=== PATIENT | male | born 1965 | race Caucasian/White ===

== ENCOUNTER 2022-11-15 07:52 | Observation (INO) ==
[2022-11-15] MEDS ORDERED: SODIUM CHLORIDE 0.9% 1000ML 1,000 ML IV ONE (08:24)
--- NOTE | 2022-11-15 08:27 | Emergency Department Note ---
Impression & Plan Meniere disease, Dizziness ED Provider Note NAME: CANDICE PATEL AGE: 57 SEX: M : 1965 ARRIVES VIA: Walk-In INFORMANT: Patient ED PROVIDER(S): Rashawn Hernandez DO CHIEF COMPLAINT: dizzy HPI: Patient is a 57-year-old male who presents to the ER for 4 days worth of ringing and pain in his right ear. He has been dizzy over the same time period. Does not change with position or movement. He is persistently dizzy. No headache or change in vision. No chest pain or shortness of breath. No nausea, vomiting, or diarrhea. No dysuria, urgency, or frequency. No other exacerbating or remitting factors. PAST MEDICAL HISTORY:See Below PAST SURGICAL HISTORY:See Below FAMILY HISTORY:See Below SOCIAL HISTORY:See Below HOME MEDICATIONS:See Below ALLERGIES:See Below VITALS:See Below PHYSICAL EXAMINATION: GENERAL: Sitting up in bed, alert, well appearing, well nourished, no distress, non-toxic EYE EXAM: normal conjunctiva. PERRL and EOM's grossly intact. EARS: TMs clear bilaterally OROPHARYNX: mucous membranes are moist NECK: supple, no nuchal rigidity, no adenopathy, non-tender LUNGS: Clear to auscultation. Normal chest wall mechanics HEART: no murmurs, S1 normal and S2 normal ABDOMEN: abdomen soft, non-tender, normo-active bowel sounds, no masses, no rebound or guarding. UPPER EXTREMITIES: upper extremities are grossly normal. LOWER EXTREMITIES: No pitting edema. NEURO EXAM: Normal sensorium, cranial nerves II-XII intact, normal speech, no weakness of arms, no weakness of legs. No drift. Finger to nose intact. Gross sensation intact. Difficulty ambulating MEDICAL DECISION MAKING: Patient is a 57-year-old male who presents the ER for dizziness/ataxia. He does have ringing and fullness in the right ear. On exam he is completely neurologically intact and able to walk. IV was established blood work was obtained. Labs show no significant leukocytosis or anemia. BMP with creatinine 1.4. LFTs bilirubin and lipase is unremarkable. COVID was negative. Patient was given fluids and Ativan. No improvement of symptoms. Unable to MR due to claustrophobia. Discussed with Dr. Beebe for further observation and management although do favor likely Mnire's. CT angios of the head and neck were unremarkable Triage Nursing notes reviewed. Limited review of prior medical records performed Vital Signs: reviewed and remarkable for HTN Differential diagnosis: Differential diagnosis includes etiologies such as benign positional vertigo, dehydration, hypovolemia, anemia, tumor, infection, hypoglycemia, electrolyte abnormalities, cardiac sources, intracerebral event, toxicologic, neurological, as well as others were entertained. ER treatment provided: See below Diagnostics interpreted by me include EKG and cardiac monitoring as listed bel ow: -Cardiac Monitoring: An order was placed for continuous cardiac monitoring. The monitor shows a rate of 70 with sinus rhythm. -ECG: Sinus rhythm rate of 69 Normal axis No PVCs QTc 435 -Laboratory studies:Interpreted by me as stated above in MDM and shown below. Imaging studies: Xrays: As interpreted by me: Portable AP upright 1 view of the chest shows no pneumonia CTs show: CT angio of the head and neck was negative for any acute pathology per radiology Consultation(s): As described in MDM Procedures:none Critical Care: None Past Med/Surg History Medical History (Updated 11/15/22 @ 12:04 by Familia Hand MD) BPPV (benign paroxysmal positional vertigo) HLD (hyperlipidemia) Social History Smoking Status: Never smoker Feels Safe at Home: Yes Home Meds Home Medications Medication Instructions Recorded Confirmed atorvastatin 40 mg tablet 40 mg PO DAILY 11/15/22 11/15/22 diclofenac sodium 100 mg 100 mg PO DAILY 11/15/22 11/15/22 tablet,extended release 24 hr Results & Data (ED) Vital Signs Vital Signs - 24 hr 11/15/22 08:05 11/15/22 08:55 11/15/22 08:45 Temperature 36.3 C L Temperature Source Skin Pulse Rate 69 79 Pulse Rate [Right Finger] 75 Pulse Rhythm [Right Finger] Respiratory Rate 20 14 Respiratory Effort / Characteristics Non-Labored Spontaneous Non-Labored Spontaneous Respiratory Depth Normal Normal Respiratory Pattern Regular Blood Pressure 145/89 H Blood Pressure [Right Arm] 141/91 H Blood Pressure Mean 107 Blood Pressure Mean [Right Arm] 107 Blood Pressure Position [Right Arm] Semi-fowlers Pulse Oximetry 95 96 Oxygen Delivery Method Room Air Room Air Sepsis Recent Fever Within 48 Hours No Sepsis New/Unexplained Change in Mental Status N/A Sepsis Action Taken by Nursing No Action Required 11/15/22 08:24 11/15/22 10:47 Temperature 36.6 C Temperature Source Oral Pulse Rate Pulse Rate [Right Finger] 67 Pulse Rhythm [Right Finger] Regular Respiratory Rate 17 Respiratory Effort / Characteristics Non-Labored Spontaneous Respiratory Depth Normal Respiratory Pattern Regular Blood Pressure Blood Pressure [Right Arm] 136/93 Blood Pressure Mean Blood Pressure Mean [Right Arm] 107 Blood Pressure Position [Right Arm] Semi-fowlers Pulse Oximetry 94 96 Oxygen Delivery Method Room Air Room Air Sepsis Recent Fever Within 48 Hours Sepsis New/Unexplained Change in Mental Status Sepsis Action Taken by Nursing Laboratory Data 11/15/22 08:45 11/15/22 08:45 Lab Results 11/15/22 11/15/22 11/15/22 Range/Units 08:42 08:45 08:45 WBC 5.25 (4.8-10.8) K/ul RBC 5.38 (4.70-6.10) M/uL Hgb 16.1 (14.0-18.0) g/dl Hct 47.2 (42.0-52.0) % MCV 87.7 (80.0-100.0) fL MCH 29.9 (25.0-34.0) pg MCHC 34.1 (32.0-36.0) g/dL RDW Std Deviation 41.5 (36.4-46.3) fL RDW Coeff of Evin 13.0 (11.5-14.5) % Plt Count 166 (130-400) K/uL MPV 10.4 (9.4-12.4) fL Immature Gran % (Auto) 0.4 % Neut % (Auto) 55.4 % Lymph % (Auto) 32.4 % [place] % (Auto) 5.9 % Eos % (Auto) 5.1 % Baso % (Auto) 0.8 % Neut # (Auto) 2.91 (1.40-6.50) K/uL Lymph # (Auto) 1.70 (1.2-3.4) K/uL [place] # (Auto) 0.31 (0.11-0.59) K/uL Eos # (Auto) 0.27 (0-0.50) K/uL Baso # (Auto) 0.04 (0-0.2) K/uL Immature Gran # (Auto) 0.02 (0.01-0.20) K/uL Sodium 140 (136-145) mmol/L Potassium 3.9 (3.5-5.1) mmol/L Chloride 107 (98-107) mmol/L Carbon Dioxide 26 (21-32) mmol/L Anion Gap 7 (3-11) BUN 27 H (6-23) mg/dl Creatinine 1.41 H (0.6-1.4) mg/dl Est Cr Clr Drug Dosing 65.2 ml/min Est GFR ( Amer) 62.7 ml/min Est GFR (Non-Af Amer) 54.1 ml/min BUN/Creatinine Ratio 19.1 (10-20) Glucose 135 H (70-99(Fasting)) mg/dl Calcium 9.7 (8.5-10.1) mg/dl Total Bilirubin 0.3 (0.2-1.0) mg/dl AST 23 (13-39) U/L ALT 40 (7-52) U/L Alkaline Phosphatase 23 L (34-104) U/L Troponin I High Sens 2.7 (0-20) pg/ml Total Protein 7.3 (6.0-8.3) gm/dl Albumin 4.5 (3.4-5.0) gm/dl Globulin 2.8 (2.5-4.0) gm/dl Albumin/Globulin Ratio 1.6 (0.9-2) Lipase 42 (11-82) U/L SARS-CoV-2, RNA, NAAT NEGATIVE (NEGATIVE) Administered Medications Discontinued Medications Aspirin (Aspirin 81 Mg Chew) 324 mg PO NOW STA Stop: 11/15/22 12:16 Last Admin: 11/15/22 12:21 Dose: 324 mg Documented By: Sodium Chloride (Nss 1000ml) 1,000 mls @ 999 mls/hr IV .Q1H1M ONE Stop: 11/15/22 09:24 Last Infusion: 11/15/22 09:54 Dose: 0 mls/hr Documented By: Admin: 11/15/22 08:52 Dose: 999 mls/hr Documented By: Ioversol (Optiray 320 500ml) 111 ml IV ONCE ONE Stop: 11/15/22 09:55 Last Admin: 11/15/22 09:49 Dose: 111 ml Documented By: JOSSY Lorazepam (Lorazepam 2 Mg/1 Ml Vial) 0.5 mg IV NOW STA Stop: 11/15/22 11:01 Last Admin: 11/15/22 11:18 Dose: 0.5 mg Documented By: GGG Imaging Data Radiologist's Impression: Chest X-Ray 11/15/22 08:24 XR chest 1V portable HISTORY: Chest pain, nonspecific COMPARISON: None. FINDINGS: No pneumothorax. No pleural effusions. The heart is normal in size. The right lung is clear. The punctate calcified granuloma within the left lower lobe. No focal lung consolidations to suggest a pneumonia. No evidence for pulmonary edema. IMPRESSION: No acute process. ACT 112: Negative or not required by law. Electronically signed by: Rudolph Haro M.D. 11/15/2022 8:53 AM Head CTA 11/15/22 08:24 CT angio head wo/w CLINICAL HISTORY: Headache. COMPARISON STUDY: No previous studies for comparison. TECHNIQUE: Unenhanced and arterial phase imaging of the head was performed. Intravenous injection of 111 cc of Optiray 320 IV was uneventful. Sagittal and coronal reconstructions were viewed as well as maximal intensity projections on an independent 3-D workstation. Automated exposure control was utilized for the study. A dose lowering technique was utilized adhering to the principles of ALARA. FINDINGS: No acute intracranial hemorrhage, midline shift or mass effect is present. Brain volume is normal. Ventricular system is normal. Basal cisterns are patent. There are no extra axial collections. No findings to suggest acute dural sinus thrombosis or acute territorial infarct. There are no significant ca lvarial abnormalities. The bilateral M1, M2, A1 and A2 segments are patent. There is moderate calcified plaque within the bilateral cavernous carotids with mild stenosis. There is no central vessel occlusion. There is no intracranial aneurysm. Posterior circulation is intact. IMPRESSION: 1. No acute intracranial findings. 2. No intracranial aneurysm. No central vessel occlusion. 3. 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 ACT 112: Negative or not required by law. Electronically signed by: Rios Powers M.D. 11/15/2022 10:30 AM Neck CTA 11/15/22 08:24 CT ANGIOGRAPHY OF THE NECK WITH CONTRAST CLINICAL HISTORY: Dizzy. Headache. COMPARISON STUDY: No previous studies for comparison. Technique: CT angiography of the carotid and vertebral arteries was obtained using Optiray and 3D reconstruction on an independent workstation. NASCET criteria was utilized. Automated exposure control was utilized for the study. A dose lowering technique was utilized adhering to the principles of ALARA. Findings: There is no cervical lymphadenopathy. No cervical spinal fracture is noted. No significant abnormalities are identified within visualized portions of the lung apices. The bilateral common carotid, cervical internal carotid and vertebral arteries are patent. There is minimal plaque within the proximal bilateral internal carotid arteries without stenosis. The vertebral arteries are unremarkable. There is no dissection within these vessels. There is no aneurysm within the neck. CTA of the head will be reported separately. IMPRESSION: No stenosis or dissection within the bilateral common carotid, cervical internal carotid or vertebral arteries. ACT 112: Negative or not required by law. Electronically signed by: Rios Powers M.D. 11/15/2022 10:04 AM Discharge Plan Visit Data Chief Complaint: Dizziness Stated Complaint: DIZZINESS ED Provider: Rashawn Hernandez Discharge Problem: Meniere disease, Dizziness Discharge Instructions Krames/Other Patient Handouts: ED Dizziness, Uncertain Cause, ED Meniere's Disease Activity Restrictions/Additional Instructions: Please follow up with your primary care doctor with in the next 24 hours. Any worsening of your symptoms, please return to the ED immediately. This includes any fevers greater than 100.4, worsening pain, chest pain, shortness breath, persistent nausea, vomiting, unable to eat or drink, change or loss of vision, weakness or numbness in arms or legs, or any other concerning signs or symptoms from your standpoint. You were given medications during this visit that will inhibit your ability to drive, operate machinery and work. Please do NOT drive, operate machinery, drink alcohol or work for the next 12hrs. You were found to have a blood pressure greater than 120 systolic over 90 diastolic. Due to the new Medicare guidelines, we are now recommending that you follow up with your primary care doctor in regards to this elevated blood pressure. Please follow-up with ENT. There are numbers listed below. Forms Stand Alone Forms: [employer] Prescriptions Prescriptions: No Action atorvastatin 40 mg tablet 40 mg PO DAILY diclofenac sodium 100 mg tablet extended release 24 hr 100 mg PO DAILY Referrals Referrals: Law Abarca MD [Physician] - PCP,NO [Primary Care Provider] -
--- NOTE | 2022-11-15 08:54 | XRay Report ---
XR chest 1V portable HISTORY: Chest pain, nonspecific COMPARISON: None. FINDINGS: No pneumothorax. No pleural effusions. The heart is normal in size. The right lung is clear . The punctate calcified granuloma within the left lower lobe. No focal lung consolidations to sugges t a pneumonia. No evidence for pulmonary edema. IMPRESSION: No acute process. ACT 112: Negative or not required by law. Electronically signed by: Rudolph Haro M.D. 11/15/2022 8:53 AM
[2022-11-15 09:15] LABS: Basophils # (auto) 0.04 K/uL (0-0.2); Basophils % (auto) 0.8 %; Eosinophils # (auto) 0.27 K/uL (0-0.50); Eosinophils % (auto) 5.1 %; Hematocrit (blood only) 47.2 % (42.0-52.0); Hemoglobin 16.1 g/dl (14.0-18.0); Immature Granulocytes # (auto) 0.02 K/uL (0.01-0.20); Immature Granulocytes % (auto) 0.4 %; Lymphocytes % (auto) 32.4 %; Mean Corpuscular Hemoglobin 29.9 pg (25.0-34.0); Mean Corpuscular Hgb Conc 34.1 g/dL (32.0-36.0); Mean Corpuscular Volume 87.7 fL (80.0-100.0); Mean Platelet Volume 10.4 fL (9.4-12.4); Monocytes # (auto) 0.31 K/uL (0.11-0.59); Monocytes % (auto) 5.9 %; Neutrophils # (auto) 2.91 K/uL (1.40-6.50); Neutrophils % (auto) 55.4 %; Platelet Count 166 K/uL (130-400); RDW Standard Deviation 41.5 fL (36.4-46.3); Red Blood Count 5.38 M/uL (4.70-6.10); White Blood Count 5.25 K/ul (4.8-10.8)
[2022-11-15 09:30] LABS: Albumin Globulin Ratio 1.6 (0.9-2); Albumin Level 4.5 gm/dl (3.4-5.0); BUN Creatinine Ratio 19.1 (10-20); Bilirubin,Total 0.3 mg/dl (0.2-1.0); Calcium 9.7 mg/dl (8.5-10.1); Creatinine Clr Calc Pharmacy 65.2 ml/min; Est GFR (African American) 62.7 ml/min; Est GFR (Non-African American) 54.1 ml/min; Globulin 2.8 gm/dl (2.5-4.0); Potassium 3.9 mmol/L (3.5-5.1); Total Protein 7.3 gm/dl (6.0-8.3)
[2022-11-15 09:36] LABS: Troponin I High Sensitivity 2.7 pg/ml (0-20)
[2022-11-15] MEDS ORDERED: OPTIRAY 320 500ml IV ONE (09:54)
--- NOTE | 2022-11-15 10:06 | CT Scan Report ---
CT ANGIOGRAPHY OF THE NECK WITH CONTRAST CLINICAL HISTORY: Dizzy. Headache. COMPARISON STUDY: No previous studies for comparison. Technique: CT angiography of the carotid and vertebral arteries was obtained using Optiray and 3D rec onstruction on an independent workstation. NASCET criteria was utilized. Automated exposure control was utilized for the study. A dose lowering technique was utilized adhering to the principles of ALA RA. Findings: There is no cervical lymphadenopathy. No cervical spinal fracture is noted. No significant abnormalities are identified within visualized portions of the lung apices. The bilateral common ball tid, cervical internal carotid and vertebral arteries are patent. There is minimal plaque within the proximal bilateral internal carotid arteries without stenosis. The vertebral arteries are unremarkabl e. There is no dissection within these vessels. There is no aneurysm within the neck. CTA of the head will be reported separately. IMPRESSION: No stenosis or dissection within the bilateral common carotid, cervical internal carotid or vertebral arteries. ACT 112: Negative or not required by law. Electronically signed by: Rios Powers M.D. 11/15/2022 10:04 AM
--- NOTE | 2022-11-15 10:31 | CT Scan Report ---
CT angio head wo/w CLINICAL HISTORY: Headache. COMPARISON STUDY: No previous studies for comparison. TECHNIQUE: Unenhanced and arterial phase imaging of the head was performed. Intravenous injection of 111 cc of Optiray 320 IV was uneventful. Sagittal and coronal reconstructions were viewed as well as maximal intensity projections on an independent 3-D workstation. Automated exposure control was utili [employer] for the study. A dose lowering technique was utilized adhering to the principles of ALARA. FINDINGS: No acute intracranial hemorrhage, midline shift or mass effect is present. Brain volume is normal. Ventricular system is normal. Basal cisterns are patent. There are no extra axial collections . No findings to suggest acute dural sinus thrombosis or acute territorial infarct. There are no sign ificant calvarial abnormalities. The bilateral M1, M2, A1 and A2 segments are patent. There is modera te calcified plaque within the bilateral cavernous carotids with mild stenosis. There is no central v essel occlusion. There is no intracranial aneurysm. Posterior circulation is intact. IMPRESSION: 1. No acute intracranial findings. 2. No intracranial aneurysm. No central vessel occlusion. 3. 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 ACT 112: Negative or not required by law. Electronically signed by: Rios Powers M.D. 11/15/2022 10:30 AM
[2022-11-15] MEDS ORDERED: LORazepam 2 MG/1 ML VIAL IV STA (11:00)
--- NOTE | 2022-11-15 11:36 | History & Physical Report ---
Date of Service November 15, 2022 Assessment & Plan (1) Dizziness: Plan: Dizziness, inability to ambulate DDx includes CVA, Mnire's, vertigo. Suspect most likely diagnosis is Mnire's Patient does have a history of intermittent vertigo which improved with meclizine, current symptoms he reports are completely different. Room does not spin, does not have a positive Ruby-Hallpike, and he notes that he is more poorly coordinated and globally weak without focal weakness Has had significant right ear hearing loss in the last 3 days We will trial clonazepam treatment for Mnire's, and complete CVA eval. Given additional hearing loss will expand MRI with contrast for acoustic neuroma eval Patient reports that he is very claustrophobic "cannot get an MRI right now I will tear the machine apart ". He has tolerated them in the past, requests conscious sedation. Reports he thinks he will be okay if this is performed earlier in the morning, will time dose of clonazepam just prior to MRI - Clonazepam 0.25 mg twice daily, follow symptomatically. Give AM dose prior to MRI Continue stroke eval for DDx including cerebellar stroke, slight ataxia on lower extremity testing Patient symptoms have been present for several days, would be outside of the window for TNKase CTA head/neck, CThead unremarkable Hyperlipidemia Continue statin "Mood issue " Patient reports he takes medications for mood, and has other medical problems but is not a good historian and does not recall what these are or the names of his medicines. He is a patient of [place] primary care who is temporarily in [place] for work. Does not remember the name of his PCP or phone number, his son will bring in his chronic medications tonight and a contact number for his PCP so that his history and problems can be reconciled. ERYNOLD Patient reports he has had REYNOLD with dehydration in the past, but thinks his baseline kidney function is normal Elevated creatinine on admission NSS 1 L given Renally dose medications BMP daily DVT prophylaxis: Heparin in the setting of REYNOLD CODE STATUS: Full Dispo: Medical telemetry until CVA is ruled out Diet heart healthy (2) HLD (hyperlipidemia): History of Present Illness Primary Care Provider: NO PCP Pt is from [place]. This past friday was dizzy. Only had a half day of work, went ot bed after because he was dizzy. "I have strength to walk, just dizzy.' Friday still dizzy, stayed home. still dizzy, stayed home. still dizzy, had son go to the store to get peroxide and swimmers ear OTC medication which he trialed in the RIGHT ear. This morning hearing greatly decreased in the R ear, but a little better with the dizziness. Ear rining intensified over breakfast, so came in to the ER for further evaluation. Has had associated tinnitus in the R ear. No prior hearing loss, no gradual hearing loss he has noticed. Did have an eardrum rupture as as kid, not sure which ear. Endorses a history of recurrent vertigo. Usually when it kicks in he has sudden room spinning 'and hits the floor vomiting.' Passes in a day with meclizine. He is out of meclizine and has not tried it with his current episode. His current dizziness feels much different than his normal vertigo. Feels more light a 'floating' and is not associated with room spinning. Room does spin when he has vertigo. Also no nausea with these episodes. Feels weak over the whole body 'like I'm wore out.' No focal weakness. No chest pain, no chest pressure No shortness of breath No cough, no sputum production No fevers, chills, or sweats No hearing change in LEFT ear, R ear hearing decreased No sinus congestion No allergies CXR: nag CT-H, CTA-H/N: 1. No acute intracranial findings. 2. No intracranial aneurysm. No central vessel occlusion.3. 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 No stenosis or dissection within the bilateral common carotid, cervical internal carotid or vertebral arteries. 'Cannot get an MRI, I'll tear your machine apart. Put me under, I cannot do it when awake.' NO kidney problems. Cr is elevated, that is new to him. Has had REYNOLD with dehydration in the past, always resolved,. Medical History: Reviewed. Denies contributory FHx. Medications: Reviewed Surgical History: Reviewed Allergies: Reviewed Social History: No tobacco/etoh use Code Status: Full Medical Hx: HLD on Atorvastatin. Diclofenic. Does nt know other meds 'on some mental pills.' Will come in. PCP in [place]: Doesn't remember name, son will bring records. Home Medications Medication Instructions Recorded Confirmed Type atorvastatin 40 mg tablet 40 mg PO DAILY 11/15/22 11/15/22 History diclofenac sodium 100 mg 100 mg PO DAILY 11/15/22 11/15/22 History tablet,extended release 24 hr Past Med/Surg History Medical History (Updated 11/15/22 @ 12:04 by Familia Hand MD) BPPV (benign paroxysmal positional vertigo) HLD (hyperlipidemia) Social History Smoking Status: Never smoker Feels Safe at Home: Yes Review of Systems Review of Systems: All systems reviewed & are unremarkable except as noted in HPI & below Physical Exam Physical Exam: General: A&Ox3. NAD. Cooperative. HEENT: Atraumatic, normocephalic.Vision/hearing intact. L TM intact with scarring. No injection/fluid. R TM wth +fluid, scarring, no erythema/injection/exudate. Pulm: CTAB A&P. -wheezes, -rales, -rhonchi. Symmetrical chest rise. No increased work of breathing. No respiratory distress. Cardiac: RRR, -mrg. Radial pulses intact and symmetrical. Abdominal: Nontender, nondistended, soft. BS present. CRANIAL NERVES: II: Pupils equal and reactive, no relative afferent pupillary defect, no VF cuts III, IV, : EOM intact, no gaze preference or deviation, no nystagmus. V: normal sensation in V1, V2, and V3 segments bilaterally VII: no asymmetry, no nasolabial fold flattening VIII: normal hearing to speech IX, X: normal palatal elevation, no uvular deviation XI: 5/5 head turn and 5/5 shoulder shrug bilaterally XII: midline tongue protrusion RUE: 5/5 Shoulder internal rotation, external rotation, flexion, extension, abduction, adduction 5/5 Elbow flexion/extension, wrist flexion/extension 5/5 turn down man strength, finger flexion/extension, interosseus LUE: 5/5 Shoulder internal rotation, external rotation, flexion, extension, abduction, adduction 5/5 Elbow flexion/extension, wrist flexion/extension 5/5 turn down man strength, finger flexion/extension, interosseus RLE: 5/5 to hip flexio, ankle dorsiflexion/plantarflexion LLE: 5/5 to hip flexion, ankle dorsiflexion/plantarflexion SENSORY: Normal to touc in upper and lower extremities without deficit or asymmetry COORD: Normal finger to nose intact. Slight discoordination on heel-lin. Results & Data Results & Data ([facility]) Vital Signs (Past 12 Hours) Vital Signs Temp Pulse Pulse Resp BP BP Pulse Ox 11/15/22 10:47 36.6 C 67 17 136/93 96 11/15/22 08:24 94 11/15/22 08:45 79 11/15/22 08:55 75 14 141/91 H 96 11/15/22 08:05 36.3 C L 69 20 145/89 H 95 O2 Del Method 11/15/22 10:47 Room Air 11/15/22 08:24 Room Air 11/15/22 08:45 11/15/22 08:55 Room Air 11/15/22 08:05 Room Air PG Care Time/CCT Total # of Minutes Spent Total Time Spent with Patient: Total time spent is greater than 50% in coordination of care (as documented) at patient's floor/unit and/or counseling patient: Coding Level of Care Code 95514 INT INP/OBS CARE 2/55MIN Diagnoses Dizziness R42 HLD (hyperlipidemia) E78.5
--- NOTE | 2022-11-15 11:49 | Electrocardiogram Report ---
Test Reason : Blood Pressure : / mmHG Vent. Rate : 069 BPM Atrial Rate : 069 BPM P-R Int : 148 ms QRS Dur : 114 ms QT Int : 406 ms P-R-T Axes : 040 -13 033 degrees QTc Int : 435 ms Normal sinus rhythm Normal ECG No previous ECGs available Confirmed by Ishan Bland ([id number]) on 11/15/2022 11:49:33 AM Referred By: Confirmed By:Ishan Bland
[2022-11-15] MEDS ORDERED: ASPIRIN 81 MG CHEW PO STA (12:15)
[2022-11-15] MEDS ORDERED: ACETAMINOPHEN 325 MG TAB PO PRN (14:10)
[2022-11-15] MEDS ORDERED: PHARMACIST DISCHARGE MED REC CONSULT PRN (14:10)
[2022-11-15] MEDS: GABAPENTIN 300 MG CAP PO SCH (20:25)
[2022-11-15] MEDS ORDERED: clonazePAM 0.25 MG TAB PO SCH (21:00)
[2022-11-15] MEDS ORDERED: hydrOXYzine HCl 10 MG TAB PO SCH (21:00)
[2022-11-16 06:13] LABS: Basophils # (auto) 0.05 K/uL (0-0.2); Basophils % (auto) 0.8 %; Eosinophils # (auto) 0.35 K/uL (0-0.50); Eosinophils % (auto) 5.5 %; Hematocrit (blood only) 44.3 % (42.0-52.0); Hemoglobin 15.2 g/dl (14.0-18.0); Immature Granulocytes # (auto) 0.03 K/uL (0.01-0.20); Immature Granulocytes % (auto) 0.5 %; Lymphocytes # (auto) 2.15 K/uL (1.2-3.4); Lymphocytes % (auto) 33.9 %; Mean Corpuscular Hemoglobin 29.7 pg (25.0-34.0); Mean Corpuscular Hgb Conc 34.3 g/dL (32.0-36.0); Mean Corpuscular Volume 86.5 fL (80.0-100.0); Mean Platelet Volume 10.8 fL (9.4-12.4); Monocytes # (auto) 0.43 K/uL (0.11-0.59); Monocytes % (auto) 6.8 %; Neutrophils # (auto) 3.34 K/uL (1.40-6.50); Neutrophils % (auto) 52.5 %; Platelet Count 157 K/uL (130-400); RDW Coefficient of Variation 12.8 % (11.5-14.5); Red Blood Count 5.12 M/uL (4.70-6.10); White Blood Count 6.35 K/ul (4.8-10.8)
[2022-11-16 07:46] VITALS: O2SAT 93
[2022-11-16] MEDS: LORazepam 2 MG/1 ML VIAL IV PRN ×2 (08:30→09:08)
[2022-11-16] MEDS: GABAPENTIN 300 MG CAP PO SCH ×2 (08:35→13:32)
[2022-11-16] MEDS: HEPARIN SOD 5,000 UNIT/0.5 ML VIAL SQ SCH ×2 (08:36→13:32)
[2022-11-16 08:42] LABS: BUN Creatinine Ratio 17.1 (10-20); Calcium 9.3 mg/dl (8.5-10.1); Chol HDL Ratio 5.4 (0-5); Creatinine Clr Calc Pharmacy 65.7 ml/min; Est GFR (African American) 63.3 ml/min; Est GFR (Non-African American) 54.6 ml/min; Potassium 4.3 mmol/L (3.5-5.1)
[2022-11-16] MEDS ORDERED: SERTRALINE HCL 50 MG TABLET PO SCH (09:00)
[2022-11-16] MEDS ORDERED: ARIPiprazole 5 MG TAB PO SCH (09:00)
[2022-11-16] MEDS ORDERED: QUEtiapine FUMARATE 25 MG TABLET PO SCH (09:00)
[2022-11-16] MEDS ORDERED: GADOBUTROL 65ML VIAL IV ONE (09:41)
[2022-11-16 10:01] LABS: Estimated Average Glucose 120 mg/dl; Hemoglobin A1C 5.8 % (4.5-5.6)
--- NOTE | 2022-11-16 11:01 | Magnetic Resonance Report ---
MR brain IAC wo/w con CLINICAL HISTORY: CVA vs neuroma r/o. Pretx with clonazepam TECHNIQUE: Multiplanar and multisequence MR images of the brain were obtained prior to and following administration of gadolinium contrast. Comparison: None available at the time of this dictation. FINDINGS: No abnormal restricted diffusion is identified. A few foci of T2 and FLAIR hyperintensity are noted i n the paraventricular areas consistent with chronic small vessel ischemic disease. Ex vacuo ventricul omegaly and sulcal enlargement is noted compatible with diffuse encephalomalacia. No mass or abnormal enhancement is seen. There is no mass effect or midline shift. There is no evidence of acute intrapa renchymal hemorrhage. No extra axial fluid collections are seen. The corpus callosum, pituitary gland , and cerebellar tonsils appear grossly unremarkable. No abnormalities of the internal auditory canal or inner ear bilaterally. Cranial nerves VII and VIII are normal. Flow voids of the major intracranial arterial vessels are identified. The imaged portions of the para nasal sinuses, mastoid air cells, and orbits are unremarkable. IMPRESSION: No acute abnormalities and in particular no evidence of infarct or abnormality in cranial nerves VII and VIII. No inner or middle ear abnormality. ACT 112: Negative or not required by law. Electronically signed by: Marcus Whalen M.D. 11/16/2022 10:58 AM
[2022-11-16 11:25] VITALS: BP 116/64; PULSE 88; TEMP 97.9
[2022-11-16] MEDS ORDERED: STROKE PATIENT DISCHARGE STA (14:18)
--- NOTE | 2022-11-16 14:25 | Discharge Summary ---
Date of Service November 16, 2022 Admission HPI Per Admitting Provider Pt is from [place]. This past friday was dizzy. Only had a half day of work, went ot bed after because he was dizzy. "I have strength to walk, just dizzy.' Friday still dizzy, stayed home. still dizzy, stayed home. still dizzy, had son go to the store to get peroxide and swimmers ear OTC medication which he trialed in the RIGHT ear. This morning hearing greatly decreased in the R ear, but a little better with the dizziness. Ear rining intensified over breakfast, so came in to the ER for further evaluation. Has had associated tinnitus in the R ear. No prior hearing loss, no gradual hearing loss he has noticed. Did have an eardrum rupture as as kid, not sure which ear. Endorses a history of recurrent vertigo. Usually when it kicks in he has sudden room spinning 'and hits the floor vomiting.' Passes in a day with meclizine. He is out of meclizine and has not tried it with his current episode. His current dizziness feels much different than his normal vertigo. Feels more light a 'floating' and is not associated with room spinning. Room does spin when he has vertigo. Also no nausea with these episodes. Feels weak over the whole body 'like I'm wore out.' No focal weakness. No chest pain, no chest pressure No shortness of breath No cough, no sputum production No fevers, chills, or sweats No hearing change in LEFT ear, R ear hearing decreased No sinus congestion No allergies CXR: nag CT-H, CTA-H/N: 1. No acute intracranial findings. 2. No intracranial aneurysm. No central vessel occlusion.3. 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 No stenosis or dissection within the bilateral common carotid, cervical internal carotid or vertebral arteries. 'Cannot get an MRI, I'll tear your machine apart. Put me under, I cannot do it when awake.' NO kidney problems. Cr is elevated, that is new to him. Has had REYNOLD with dehydration in the past, always resolved,. Medical History: Reviewed. Denies contributory FHx. Medications: Reviewed Surgical History: Reviewed Allergies: Reviewed Social History: No tobacco/etoh use Code Status: Full Medical Hx: HLD on Atorvastatin. Diclofenic. Does nt know other meds 'on some mental pills.' Will come in. PCP in [place]: Doesn't remember name, son will bring records. Principal Diagnosis Meniere Disease Discharge Exam Constitutional WD/WN, vitals as above Eyes PERRL, conjunctivae normal, anicteric sclerae ENMT external ear and nose normal, oropharynx normal Ears: + hearing impairment and + TM abnormality (scarring TMs AU,no bulging or erythema); no external ear abnormality and no EAC abnormality Respiratory normal respiratory effort, lungs clear to auscultation Cardiovascular RRR, no murmur, no edema Skin no rashes, warm and dry Neurologic PERRL, EOMI, accommodation nl, no face palsy, no dysarthria CN's II-XI intact bilaterally; no focal motor deficits and not confused Speech / Cognition: normal speech Psychiatric A+Ox3, euthymic affect Discharge Data Allergies Allergy/AdvReac Type Severity Reaction Status Date / Time meperidine [From Demerol] Allergy Irritable Verified 11/16/22 08:17 Consultations 11/15/22 11:16 ED Decision to Admit Stat Ordered Studies 11/15/22 08:24 CT angio head wo/w Stat CT angio neck with con Stat 11/16/22 09:00 MR brain IAC wo/w con Routine Hospital Course (1) Meniere disease: Dizziness, inability to ambulate, associated with tinnitus and hearing loss in right ear Has had previous episodes of vertigo but never w/ tinnitus and hearing loss Suspect most likely diagnosis is Mnire's Ear exam shows scarring on TMs but no OM Could have a viral labyrinthitis causing Meniere's given fatigue and general malaise precediing the Meniere's CTA head/neck, CThead unremarkable MRI IAC and brain neg for stroke-shows diffuse encephalomalacia no events on tele stable for dc to home trial of HCTZ, low sodium diet check BMP in 2-3 weeks -recommend f/u with ENT within 1 month-[place] is moving to [place] next [place] (2) CKD (chronic kidney disease) stage 3, GFR 30-59 ml/min: sound technician stable at 1.4, likely baseline follow BMP with starting HCTZ (3) HLD (hyperlipidemia): continue statin (4) Mood disorder: continue home psych meds Plan Dispo-dc to home Total Time Total Time Spent Total Time Spent (In Minutes): 35 mi Discharge Plan Discharge Items Patient Disposition: Home - Self-Care Reason For Visit: ATAXIA/DIZZINESS, HEARING LOSS Discharge Diagnosis: Meniere Disease Condition on Discharge: Fair Activity: As commented below Lifting: Gradually increase as tolerated Bathing: No limitations Exercise/Sports: Gradually increase as tolerated Driving/Machine Use: No driving until dizziness completely resolved Weightbearing: Full weightbearing Weightbearing Comment: use cane to ambulate while dizzy Non-emergency contact: Primary Care Provider Call non-emergency contact if: you have any medication questions and your symptoms worsen Follow-up/Referrals: PCP,NO [Primary Care Provider] - Diet: Low Sodium (2gm) Ambulatory Orders: Basic Metabolic Panel (Routine) Timeframe: 3 Weeks Location: Determined by Patient Ordered By: Liliam Copeland Addtl Attending Provider Instructions: You likely have a condition called Meniere Disease that caused your dizziness, tinnitus (ringing in the ear), and hearing loss. This can be from extra fluid in the inner ear. You were started on a water pill to see if this improves it. You should eat a low sodium/low salt diet to help keep this from happening. It is recommended that you see an ENT doctor as an outpatient. Your brain MRI did not show a stroke, tumor, or anything abnormal in your internal auditory canals. You should have blood work checked in 2-3 weeks to monitor your kidney function and sodium levels after starting on this water pill called HCTZ. Pending Studies at Discharge: No Stand-Alone Forms: [facility] Medications and DC Order Prescriptions: New hydrochlorothiazide 25 mg Tablet 25 mg PO QAM Qty: 30 0RF Continued atorvastatin 40 mg tablet 40 mg PO DAILY diclofenac sodium 100 mg tablet extended release 24 hr 100 mg PO DAILY sertraline 50 mg Tablet 50 mg PO DAILY aripiprazole 5 mg PO DAILY gabapentin 300 mg PO DAILY hydroxyzine HCl 12.5 mg PO HS quetiapine 25 mg PO DAILY Discharge Orders: Discharge Order (Routine); Ordered 11/16/22 Ordered By: Liliam Copeland Admission Data Admit Date/Time: 11/15/22 12:03 Attending Provider: Liliam Copeland Admit Provider: Familia Hand Primary Care Provider: PCP,NO Other Providers: Familia Hand Coding Level of Care Code 80565 INP/OBS DISCH >30 MIN Diagnoses Meniere disease H81.09 CKD (chronic kidney disease) stage 3, GFR 30-59 ml/min N18.30 HLD (hyperlipidemia) E78.5 Mood disorder F39
[2022-11-16] MEDS ORDERED: hydroCHLOROthiazide 25 MG TAB PO SCH (14:45)
[2022-11-16] MEDS ORDERED: POLYETHYLENE (MIRALAX) 17 GM PACK PO SCH (16:30)
[2022-11-16] MEDS ORDERED: LACTATED RINGER'S 1,000 ML IV SCH (16:30)
== END 2022-11-16 15:10 | disposition home or self-care (01) ==
LOC: EDINP 07:52 → ED 07:52 → SUATTDRO 12:03 → 2N 13:50